=== PATIENT | female | born 1995 | race Caucasian/White ===

== ENCOUNTER 2023-04-24 17:13 | Emergency (ER) | payer SELFPAY ==
[~2023-04-24] VITALS: Ht 170.2 cm; Wt 80.0 kg
[2023-04-24 17:20] VITALS: TEMP 98.4; O2SAT 100
[2023-04-24 17:45] VITALS: BP 138/83; PULSE 111; RESP 16
[2023-04-24] MEDS ORDERED: SODIUM CHLORIDE 0.9% 1,000 ML IV ONE (17:45)
[2023-04-24] MEDS ORDERED: IBUPROFEN 600MG TABLET PO ONE (17:45)
[2023-04-24 18:53] LABS: CLARITY URINE CLEAR (CLEAR); COLOR URINE YELLOW (YELLOW); GLUCOSE URINE NEGATIVE (NEGATIVE); KETONES URINE NEGATIVE (NEGATIVE); LEUKOCYTE ESTERASE URINE 1+ (NEGATIVE); NITRITE URINE NEGATIVE (NEGATIVE); OCCULT BLOOD URINE NEGATIVE (NEGATIVE); PROTEIN URINE NEGATIVE (NEGATIVE); SPECIFIC GRAVITY URINE 1.011 (1.005-1.030); UROBILINOGEN URINE 0.2 E.U./dL (0.2-1.0)
[2023-04-24 18:56] LABS: BACTERIA URINE 2+; RBC URINE 0-2 /hpf (0-2); YEAST URINE NONE SEEN
[2023-04-24 19:32] LABS: SQUAMOUS EPITHELIAL CELL URINE FEW /lpf (RARE/1+)
[2023-04-24 20:20] LABS: BASOPHILS % 0.4 % (0.0-2.0); EOSINOPHILS % 1.4 % (0.0-5.0); HEMATOCRIT. 41.8 % (36.0-48.0); LYMPHOCYTES % 29.6 % (20.0-50.0); MEAN CORPUSCULAR HEMOGLOBIN 30.8 pg (28.0-32.0); MEAN CORPUSCULAR HGB CONC 33.4 g/dL (31.0-37.0); MEAN CORPUSCULAR VOLUME 92.3 fL (81.0-99.0); MEAN PLATELET VOLUME 7.4 fl (7.4-10.4); MONOCYTES % 7.4 % (2.0-8.0); NEUTROPHILS % 61.2 % (40.0-76.0); PLATELET 308 x1000/uL (130-400); RED BLOOD CELL COUNT 4.53 mill/uL (4.2-5.4); RED CELL DISTRIBUTION WIDTH 12.8 % (11.6-14.6); WHITE BLOOD COUNT 8.9 x1000/uL (4.5-11.0)
[2023-04-24 20:30] LABS: PROTHROMBIN TIME 10.7 sec (9.6-11.0)
[2023-04-24 20:31] LABS: CHLORIDE 106 mEq/L (98-107); INDEX HEMOLYSI 1 (1-3); INDEX ICTERIC 1 (1-4); INDEX LIPEMIC 1 (1-3); POTASSIUM 3.8 mEq/L (3.5-5.1); SODIUM 137 mEq/L (136-145)
[2023-04-24 20:34] LABS: HCG SCREEN NEGATIVE
[2023-04-24 20:41] LABS: ALANINE AMINOTRANSFERASE 31 IU/L (13-61); ALBUMIN 4.3 g/dL (3.4-5.0); ASPARTATE AMINOTRANSFERASE 14 IU/L (15-37); BILIRUBIN TOTAL 0.2 mg/dL (0.1-1.0); CALCIUM 9.4 mg/dL (8.5-10.1); CARBON DIOXIDE 26 mEq/L (21-32); CREATININE 0.7 mg/dL (0.6-1.3); GLUCOSE 98 mg/dL (70-105); PROTEIN TOTAL 8.3 g/dL (6.0-8.3); UREA NITROGEN BLOOD 9 mg/dL (7-21)
== END 2023-04-24 22:23 | disposition home or self-care (01) ==
LOC: ER 21:21
DX: M54.2 Cervicalgia (principal); M25.561 Pain in right knee; M79.602 Pain in left arm
CPT/HCPCS: 99284; 70450; 71045; 80053; 81003; 81025; 84703; 83690; 85025; 85610; 85730; 86850; 86900; 86901; 36415; 72170; 73562; 72125; 72128; 72131; J7030